=== PATIENT | female | born 1975 | race Two or more races ===

== ENCOUNTER 2022-12-20 08:32 | Outpatient (CLI) | payer OTHER | END 2022-12-20 08:42 | disposition home or self-care (01) | LOC: MAMO-SONO 08:32 | PROVIDERS: ATTEND Internal Medicine Cardiovascular Disease | DX: Z12.31 Encounter for screening mammogram for malignant neoplasm of breast (principal) ==

== ENCOUNTER 2024-07-23 10:34 | Emergency (ER) | payer OTHER ==
[~2024-07-23] VITALS: Ht 160 cm; Wt 63.0 kg
== END 2024-07-23 15:03 | disposition home or self-care (01) ==
LOC: ER 10:35
DX: R03.0 Elevated blood-pressure reading, without diagnosis of hypertension (principal)

== ENCOUNTER 2025-03-26 11:08 | Emergency (ER) | payer OTHER ==
[~2025-03-26] VITALS: Ht 160 cm; Wt 62.6 kg
[2025-03-26] MEDS ORDERED: LOSARTAN POTASS50 MG PO (11:30)
[2025-03-26 12:39] LABS: BASO % 0.9 % (0.1-1.2); EOS # 0.06 (0.04-0.54); EOS % 1.3 % (0.7-7.0); LYMPH # 1.71 (1.18-3.74); LYMPH % 37.7 % (19.3-53.1); MEAN PLATELET VOLUME 9.10 fl (9.4-12.4); MONO # 0.42 (0.24-0.82); MONO % 9.3 % (4.7-12.5); NEUT # 2.30 (1.56-6.13); NEUT % 50.8 % (34.0-71.1); RED CELL DISTRIBUTION WIDTH 12.0 % (11.6-14.4)
[2025-03-26 13:26] LABS: ALT/SGPT 24.0 U/L (12-78); AST/SGOT 14.0 U/L (15-37); BILIRUBIN TOTAL 0.28 mg/dL (0.3-1.2); BUN CREA RATIO 13.0 (7.0-25.0); CREATININE SERUM 0.72 mg/dL (0.55-1.02); GFR 86.45; GLOBULINA 3.7 G/DL (2.4-3.5); GLUCOSE FASTING 87.0 mg/dL (65-100); OSMOLALITY SERUM 281.0 MOSM/KG (275-295)
[2025-03-26 13:43] VITALS: BP 132/85; O2SAT 98
== END 2025-03-26 13:53 | disposition home or self-care (01) ==
LOC: ER 11:08
PROVIDERS: General Practice
DX: I10 Essential (primary) hypertension (principal)